=== PATIENT | male | born 1955 | race Caucasian/White ===

== ENCOUNTER → 2019-05-20 | Outpatient (CLI) | payer OTHER, MEDICARE ==
[~2019-05-20] VITALS: Ht 175.3 cm; Wt 86.2 kg
[~2019-05-20] MED LIST: ASPIR 8181 MG PO; CLARITIN10 MG PO; FENOFIBRATE160 MG PO; GLIPIZIDE 10 MG10 MG PO; HYDROCHLOROTH12.5 M1 PO; LANTUS100 UNIT/M SUBQ; LISINOPRIL20 MG PO; METFORMIN HCL500 MG PO; OMEPRAZOLE 20 M20 M1 PO; PLAVIX 75 MG TA75 M1 PO; TOPAMAX 25 MG T25 MG PO; VICTOZA0.6 MG/0.1 SUBQ; WELLBUTRIN SR150 MG PO; ZOLOFT50 MG PO
--- NOTE | ~2019-05-20 | P ---
[facility] [place] [address] PROCEDURE REPORT Name: JOAQUINA HULL Room #: REG [facility]#: [id number] Admission: 05/20/19 ������������������ Attend Phys: Diony Mccoy Discharge: ������������������ Date of : 57 Report #: [id number] THIS REPORT FOR: //name// CC: Diony De La Cruz MD DATE OF SERVICE: 05/20/2019 PROCEDURE PERFORMED: Upper endoscopy with esophageal dilation. HISTORY OF PRESENT ILLNESS: The patient is a 63-year-old male who reports intermittent shortness of breath. This was thought to be possibly due to esophageal spasms. He denies any true dysphagia. He does have heartburn at times, but takes Prilosec b.i.d. for the last 10 years. No previous history of upper endoscopy. He takes aspirin and Plavix, which has been held for the last 5 days. He underwent a stress test that was essentially negative. No previous history of coronary artery disease. Plan is for upper endoscopy. DESCRIPTION OF PROCEDURE: The risks and benefits of the procedure were explained to the patient, those risks including but not limited to bleeding, perforation and the risk of sedation. He understood these risks and gave informed consent. Sedation was given using propofol per anesthesia. Next, using a standard Olympus upper endoscope, the scope was placed in the patient's mouth and advanced under direct vision through the esophagus, stomach and into the second portion of the duodenum. The esophagus was normal throughout. The GE junction was normal. Upon entering the stomach, a small hiatal hernia was noted. Overall, the gastric mucosa was normal. The pylorus was normal and patent. The duodenal bulb, first and second portion were all normal. The scope was then brought back up into the patient's stomach and a Savary guidewire was inserted through the scope, leaving the guidewire in place as the scope was then withdrawn. Next, a 48-[place] Savary dilation of the esophagus was then performed without difficulty. The wire and dilator removed. The scope was reintroduced into the patient's stomach. There was no evidence of mucosal tear after dilation. The scope was then withdrawn and the procedure terminated. The patient tolerated the procedure well. IMPRESSION: 1. Small hiatal hernia. 2. Otherwise, normal upper endoscopy. RECOMMENDATIONS: 1. The patient with intermittent chest discomfort and shortness of breath. This was thought to be possibly due to esophageal spasms, does not typically occur while the patient is swallowing, although it can occur at random times. Esophageal dilation was performed today to see if this would be beneficial. We [address] [address] PROCEDURE REPORT Name: JOAQUINA HULL Room #: REG [facility] [place]#: [id number] Admission: 05/20/19 ������������������ Attend Phys: Diony Mccoy Discharge: ������������������ Date of : 57 Report #: [id number] would recommend continuing the patient on b.i.d. PPI therapy. If there is no improvement, they have discussed possibly proceeding with cardiac catheterization in the future. Thank you for allowing me to participate in his care. ��������������������������������������������� ���������������������������������������� By: ��������������������������������������������� [phone] Diony Pope MD /nt
== END | disposition home or self-care (01) ==
LOC: GI 06:47
DX: R06.02 Shortness of breath (principal); K44.9 Diaphragmatic hernia without obstruction or gangrene; I10 Essential (primary) hypertension; E11.9 Type 2 diabetes mellitus without complications; E78.5 Hyperlipidemia, unspecified; F32.9 Major depressive disorder, single episode, unspecified; F41.9 Anxiety disorder, unspecified; K21.9 Gastro-esophageal reflux disease without esophagitis; Z85.038 Personal history of other malignant neoplasm of large intestine; Z98.0 Intestinal bypass and anastomosis status; Z87.891 Personal history of nicotine dependence; Z86.73 Personal history of transient ischemic attack (TIA), and cerebral infarction without residual deficits; Z90.49 Acquired absence of other specified parts of digestive tract; Z98.890 Other specified postprocedural states; Z79.899 Other long term (current) drug therapy; Z79.4 Long term (current) use of insulin; Z88.0 Allergy status to penicillin; Z88.8 Allergy status to other drugs, medicaments and biological substances; Z79.82 Long term (current) use of aspirin
CPT/HCPCS: 62110; 62900

== ENCOUNTER → 2019-10-28 | Outpatient (CLI) | payer OTHER, MEDICARE ==
[~2019-10-28] VITALS: Ht 175.3 cm; Wt 88.9 kg
--- NOTE | 2019-10-30 12:59 | P ---
[facility] [place] [address] PROCEDURE REPORT Name: JOAQUINA HULL Room #: REG [facility]#: [id number] Admission: 10/28/19 Attend Phys: Diony Mccoy Discharge: Date of : 57 Report #: [id number] THIS REPORT FOR: cc: Chandra De La Cruz,Diony Weinberg MD ~ CC: Diony Owusu MD PhD Chandra De La Cruz MD DATE OF SERVICE: 10/28/2019 PROCEDURE PERFORMED: Colonoscopy. HISTORY OF PRESENT ILLNESS: The patient is a 64-year-old male with a history of colon cancer in 2007. He underwent radiation and chemotherapy and resection, the cancer involved the rectum. He does have a reanastomosis in the rectum. His last colonoscopy and last few colonoscopies have been done by different physician and reportedly have been negative recently, last one being 5 years ago. He denies any symptoms other than some irregular bowel movements. His weight has been stable. No family history of colon cancer. DESCRIPTION OF PROCEDURE: The risks and benefits of the procedure were explained to the patient, those risks including but not limited to bleeding, perforation and the risk of sedation. He understood these risks and gave informed consent. Sedation was given using propofol per anesthesia. Next, a digital rectal exam was initially performed, which was normal. Next, using a standard Olympus colonoscope, the scope was placed in the patient's anus and advanced under direct vision to the cecum. The overall prep was good. The cecum and ileocecal valve were normal in appearance. Ascending, transverse, descending and sigmoid colon were all normal. The surgical anastomosis was noted in the mid to distal rectum. This was well healed and patent. There was no evidence of stricture. On retroflexion, no abnormalities were noted. The scope was then withdrawn and the procedure terminated. The patient tolerated the procedure well. IMPRESSION: 1. Surgical anastomosis noted in the mid to distal rectum, widely patent. 2. Otherwise, normal colonoscopy. RECOMMENDATIONS: Repeat colonoscopy in 5 years. [facility] [address] [place] [address] PROCEDURE REPORT Name: KURTISJOAQUINA FERREIRA Room #: REG [facility] [place]#: [id number] Admission: 10/28/19 Attend Phys: Diony Mccoy Discharge: Date of : 57 Report #: [id number] Thank you for allowing me to participate in his care. <ELECTRONICALLY SIGNED> By: Diony Pope MD 10/30/19 [id number] Diony Pope MD /nt
== END | disposition home or self-care (01) ==
LOC: GI 06:52
DX: R19.4 Change in bowel habit (principal); I10 Essential (primary) hypertension; F32.9 Major depressive disorder, single episode, unspecified; K21.9 Gastro-esophageal reflux disease without esophagitis; G47.30 Sleep apnea, unspecified; E11.9 Type 2 diabetes mellitus without complications; Z98.0 Intestinal bypass and anastomosis status; Z90.49 Acquired absence of other specified parts of digestive tract; Z98.890 Other specified postprocedural states; Z79.899 Other long term (current) drug therapy; Z79.4 Long term (current) use of insulin; Z85.038 Personal history of other malignant neoplasm of large intestine; Z87.891 Personal history of nicotine dependence; Z86.73 Personal history of transient ischemic attack (TIA), and cerebral infarction without residual deficits; Z88.0 Allergy status to penicillin; Z88.8 Allergy status to other drugs, medicaments and biological substances; Z79.82 Long term (current) use of aspirin

== ENCOUNTER → 2020-06-24 | Outpatient (CLI) | payer OTHER, MEDICARE | LOC: LAB 07:30 | PROVIDERS: ATTEND Neuromusculoskeletal Medicine & OMM | DX: Z20.828 Contact with and (suspected) exposure to other viral communicable diseases (principal) ==

== ENCOUNTER → 2020-10-07 | Outpatient (CLI) | payer OTHER, MEDICARE | LOC: LAB 12:11 | PROVIDERS: ATTEND Anesthesiology | DX: Z01.812 Encounter for preprocedural laboratory examination (principal); Z20.822 Contact with and (suspected) exposure to COVID-19 ==

== ENCOUNTER → 2020-11-17 | Outpatient (CLI) | payer OTHER | LOC: RAD 08:06 | PROVIDERS: ATTEND Neuromusculoskeletal Medicine & OMM | DX: Z13.6 Encounter for screening for cardiovascular disorders (principal); E78.00 Pure hypercholesterolemia, unspecified; I25.10 Atherosclerotic heart disease of native coronary artery without angina pectoris ==